=== PATIENT | female | born 1940 | race Caucasian/White ===

== ENCOUNTER 2016-12-26 15:10 | Emergency (ER) | payer OTHER ==
[~2016-12-26] VITALS: Ht 154.9 cm; Wt 55.8 kg
[~2016-12-26 15:10] MED LIST: JANUVIA25 M1 PO; KEPPRA500 MG PO; LORAZEPAM1 PO; METFORMIN500 MG PO
[2016-12-26 17:33] VITALS: BP 136/56
== END 2016-12-26 17:34 | disposition home or self-care (01) ==
LOC: ED 15:10
DX: S30.0XXA Contusion of lower back and pelvis, initial encounter (principal); E78.00 Pure hypercholesterolemia, unspecified; E11.9 Type 2 diabetes mellitus without complications; Z79.84 Long term (current) use of oral hypoglycemic drugs; W01.0XXA Fall on same level from slipping, tripping and stumbling without subsequent striking against object, initial encounter; Y93.89 Activity, other specified; Y99.8 Other external cause status; Y92.89 Other specified places as the place of occurrence of the external cause
CPT/HCPCS: 72072

== ENCOUNTER 2017-06-22 11:51 | Emergency (ER) | payer OTHER ==
[~2017-06-22] VITALS: Ht 152.4 cm; Wt 54.4 kg
[2017-06-22 11:52] VITALS: BP 130/56
[2017-06-22 13:59] LABS: UA SPECIFIC GRAVITY >=1.030 (1.005-1.035); microscopic required? YES; urine erythrocyte NEGATIVE (NEGATIVE)
== END 2017-06-22 14:10 | disposition home or self-care (01) ==
LOC: ED 11:51
PROVIDERS: Emergency Medicine
DX: E11.40 Type 2 diabetes mellitus with diabetic neuropathy, unspecified (principal); R35.0 Frequency of micturition; R30.9 Painful micturition, unspecified; Z79.84 Long term (current) use of oral hypoglycemic drugs

== ENCOUNTER 2017-08-01 12:37 | Emergency (ER) | payer OTHER ==
[~2017-08-01] VITALS: Ht 152.4 cm; Wt 54.9 kg
[2017-08-01 13:10] VITALS: Ht 152.4 cm; Wt 54.9 kg
[2017-08-01 14:46] LABS: UA SPECIFIC GRAVITY 1.015 (1.005-1.035); microscopic required? YES; urine erythrocyte TRACE (NEGATIVE)
[2017-08-01 16:12] VITALS: BP 141/67
== END 2017-08-01 16:12 | disposition home or self-care (01) ==
LOC: ED 12:37
DX: B34.9 Viral infection, unspecified (principal); E11.9 Type 2 diabetes mellitus without complications; E78.00 Pure hypercholesterolemia, unspecified; Z87.42 Personal history of other diseases of the female genital tract

== ENCOUNTER 2017-11-08 14:01 | Emergency (ER) | payer OTHER ==
[~2017-11-08] VITALS: Ht 152.4 cm; Wt 55.8 kg
[2017-11-08 14:09] VITALS: BP 115/62; Ht 152.4 cm; Wt 55.8 kg
== END 2017-11-08 15:00 | disposition home or self-care (01) ==
LOC: ED 14:01
DX: H66.92 Otitis media, unspecified, left ear (principal); N39.0 Urinary tract infection, site not specified; E11.9 Type 2 diabetes mellitus without complications; E78.00 Pure hypercholesterolemia, unspecified

== ENCOUNTER 2018-02-10 17:54 | Emergency (ER) | payer OTHER ==
[~2018-02-10] VITALS: Ht 160 cm; Wt 55.3 kg
[2018-02-10 18:03] VITALS: Ht 160 cm; Wt 55.3 kg
[2018-02-10 19:20] VITALS: BP 150/60
== END 2018-02-10 19:20 | disposition home or self-care (01) ==
LOC: ED 17:54
DX: S10.11XA Abrasion of throat, initial encounter (principal); E07.9 Disorder of thyroid, unspecified; E11.9 Type 2 diabetes mellitus without complications; E78.00 Pure hypercholesterolemia, unspecified; X58.XXXA Exposure to other specified factors, initial encounter; Y93.89 Activity, other specified; Y92.511 Restaurant or cafe as the place of occurrence of the external cause; Y99.8 Other external cause status